=== PATIENT | male | born 2000 | race Caucasian/White ===

== ENCOUNTER 2018-03-12 01:31 | Emergency (ER) | payer BC ==
[2018-03-12] MEDS ORDERED: ONDANSETRON 4 MG/2 ML VIAL IVP ONE (01:34)
[2018-03-12] MEDS ORDERED: NS 1,000 ML IV ONE (01:34)
--- NOTE | 2018-03-12 01:36 | EDPHY ---
H & P Time Seen by Provider: 03/12/18 01:34 HPI/ROS: HPI CHIEF COMPLAINT: Alcohol Intoxication HISTORY OF PRESENT ILLNESS: 18-year-old male presents emergency room by EMS for acute alcohol intoxication. Unable to ambulate. Vomiting on himself. No trauma. Past Medical History: unknown Past Surgical History: Unknown Social History: Large amount of alcohol this evening. [facility] [facility], [place] student. Family History: Unknown ROS REVIEW OF SYSTEMS: 10 Systems were reviewed and negative with the exception of the elements mentioned in the history of present illness. Exam Constitutional Intoxicated, triage nursing summary reviewed, vital signs reviewed, Sleepy, smells of alcohol Eyes normal conjunctivae and sclera, horizontal beating nystagmus consistent acute alcohol intoxication, otherwise pupils equal and react to light HENT normal inspection, atraumatic, moist mucus membranes, no epistaxis, neck supple/ no meningismus, no raccoon eyes. Respiratory clear to auscultation bilaterally, normal breath sounds, no respiratory distress, no wheezing. Cardiovascular rate normal, regular rhythm, no murmur, no edema, distal pulses normal. Gastrointestinal soft, non-tender, no rebound, no guarding, normal bowel sounds, no distension, no pulsatile mass. Genitourinary no CVA tenderness. Musculoskeletal no midline vertebral tenderness, full range of motion, no calf swelling, no tenderness of extremities, no meningismus, good pulses, neurovascularly intact. Skin pink, warm, & dry, no rash, skin atraumatic. Neurologic sleepy, intoxicated with alcohol,, alert and oriented x 3, AAOx3, moves all 4 extremities equally, motor intact, sensory intact, CN II-XII intact , , normal vision, normal speech. Psychiatric normal mood/affect. Heme/Lymph/Immune no lymphadenopathy. Differential Diagnosis: Includes but is not limited to in a particular order acute alcohol intoxication, alcohol abuse, dehydration, electrolyte abnormality , nausea vomiting from acute alcohol intoxication Medical Decision Making: Plan for this patient IV establishment full monitoring and evaluation advisor watch for further symptoms. Watch for worsening condition. Serum alcohol level basic electrolytes, 1 L normal saline fluid bolus. Re-evaluation: Serum alcohol level [id number]: Patient here in emergency room, is getting aggressive with staff, cursing at staff and security. He is now much more sober. Patient on a [facility] HOLD. PD asked escort the patient to [facility]. Source: Patient, EMS Constitutional: Initial Vital Signs Temperature (C) 36.5 C 03/12/18 01:58 Heart Rate 65 03/12/18 01:58 Respiratory Rate 14 03/12/18 01:58 Blood Pressure 100/62 03/12/18 01:58 O2 Sat (%) 93 03/12/18 01:58 O2 Delivery Mode Room Air Allergies/Adverse Reactions: Unable to Assess Allergy (Unverified 03/12/18 02:02) Medical Decision Making - Data Points Laboratory Results: Laboratory Results 03/12/18 01:30 03/12/18 01:30 03/12/18 03/12/18 01:30 01:30 WBC 6.19 10^3/uL 10^3/uL (3.80-9.50) RBC 5.05 10^6/uL 10^6/uL (4.40-6.38) Hgb 15.4 g/dL g/dL (13.7-17.5) Hct 43.5 % % (40.0-51.0) MCV 86.1 fL fL (81.5-99.8) MCH 30.5 pg pg (27.9-34.1) MCHC 35.4 g/dL g/dL (32.4-36.7) RDW 13.1 % % (11.5-15.2) Plt Count 180 10^3/uL 10^3/uL (150-400) MPV 10.2 fL fL (8.7-11.7) Neut % (Auto) 63.3 % % (39.3-74.2) Lymph % (Auto) 29.4 % % (15.0-45.0) [place] % (Auto) 6.3 % % (4.5-13.0) Eos % (Auto) 0.6 % % (0.6-7.6) Baso % (Auto) 0.2 % L % (0.3-1.7) Nucleat RBC Rel Count 0.0 % % (0.0-0.2) Absolute Neuts (auto) 3.92 10^3/uL 10^3/uL (1.70-6.50) Absolute Lymphs (auto) 1.82 10^3/uL 10^3/uL (1.00-3.00) Absolute Monos (auto) 0.39 10^3/uL 10^3/uL (0.30-0.80) Absolute Eos (auto) 0.04 10^3/uL 10^3/uL (0.03-0.40) Absolute Basos (auto) 0.01 10^3/uL L 10^3/uL (0.02-0.10) Absolute Nucleated RBC 0.00 10^3/uL 10^3/uL (0-0.01) Immature Gran % 0.2 % % (0.0-1.1) Immature Gran # 0.01 10^3/uL 10^3/uL (0.00-0.10) Sodium 146 mEq/L H mEq/L (135-145) Potassium 4.1 mEq/L mEq/L (3.3-5.0) Chloride 106 mEq/L mEq/L (97-110) Carbon Dioxide 24 mEq/l mEq/l (22-31) Anion Gap 16 mEq/L mEq/L (8-16) BUN 12 mg/dL mg/dL (7-23) Creatinine 1.1 mg/dL mg/dL (0.7-1.3) Estimated GFR > 60 Glucose 107 mg/dL H mg/dL (70-100) Calcium 9.4 mg/dL mg/dL (8.5-10.4) Ethyl Alcohol 331 mg/dL H mg/dL (0-10) Medications Given: Discontinued Medications Sodium Chloride (Ns) 1,000 mls @ 0 mls/hr IV EDNOW ONE; Wide Open PRN Reason: Protocol Stop: 03/12/18 01:35 Last Admin: 03/12/18 01:42 Dose: 1,000 mls Ondansetron HCl (Zofran) 4 mg IVP EDNOW ONE Stop: 03/12/18 01:35 Last Admin: 03/12/18 01:42 Dose: 4 mg Departure - Departure Disposition: Home, Routine, Self-Care Clinical Impression: Alcoholic intoxication Qualifiers: Complication of substance-induced condition: uncomplicated Qualified Code(s): F10.920 - Alcohol use, unspecified with intoxication, uncomplicated Instructions: Alcohol Intoxication (ED), Abuse of Alcohol (ED) Referrals: Patient,NotPresent [Unknown] - As per Instructions
[2018-03-12 01:45] LABS: PLATELET COUNT 180 10^3/uL (150-400)
[2018-03-12 06:49] VITALS: BP 92/71
== END 2018-03-12 07:30 | disposition home or self-care (01) ==
LOC: EDSEX 01:31
DX: F10.920 Alcohol use, unspecified with intoxication, uncomplicated (principal); Y90.8 Blood alcohol level of 240 mg/100 ml or more; E86.9 Volume depletion, unspecified
CPT/HCPCS: 96374; G0480